=== PATIENT | female | born 1980 | race Caucasian/White ===

== ENCOUNTER 2017-10-06 15:21 | Inpatient (IN) | payer OTHER ==
[2017-10-06 16:08] LABS: Bilirubin Negative (Negative); Blood, Urine Trace (Negative); Glucose, Urine (Dipstick) Negative (Negative); Ketone, Urine Negative (Negative); Nitrite Negative (Negative); Protein, Urine (Dipstick) Negative (Neg-Trace); Urobilinogen 0.2 mg/dL (0.2-1.0)
[2017-10-06 16:12] LABS: Bacteria/HPF 1+ HPF (None Seen); Hyaline Casts/LPF 0-3 HYALINE CAST LPF (0-3 Hyaline); WBC/HPF 0-3 HPF (0-3)
[2017-10-06 16:14] LABS: #Basophils 0.1 thou/uL (0.0-0.2); #Eosinphils 0.2 thou/uL (0.0-0.7); #Lymphocytes 1.9 thou/uL (1.20-3.40); #Monocytes 0.7 thou/uL (0.11-0.59); #Neutrophils 9.7 thou/uL (1.40-6.50); %Basophils 0.6 % (0.0-1.0); %Eosinophils 1.7 % (0.0-10.0); %Lymphocytes 14.8 % (21.0-51.0); %Monocytes 5.6 % (0.0-10.0); Hematocrit 42.4 % (36.0-47.0); Mean Platelet Volume 7.7 fL (7.4-10.4); White Blood Cell (WBC) Count 12.5 thou/uL (4.8-10.8)
[2017-10-06] MEDS ORDERED: Pantoprazole 40 MG VIAL ONE (16:16)
[2017-10-06] MEDS ORDERED: Lidocaine Viscous Sol 2% 15 ml UD Cup ONE (16:16)
[2017-10-06] MEDS ORDERED: Mag-Al 1200 mg/1200 mg/30 ML UDCUP ONE (16:16)
[2017-10-06 16:33] LABS: ALT (SGPT) 26 U/L (8-55); AST (SGOT) 24 U/L (5-34); Alkaline Phosphatase 72 U/L (40-150); Anion Gap 14 mmol/L (10-20); BUN (Urea Nitrogen) 8 mg/dL (7.0-18.7); Bilirubin, Total 0.6 mg/dL (0.2-1.2); Calc. Creatinine Clearance 0 mL/min (70-130); Calcium 9.3 mg/dL (7.8-10.44); Carbon Dioxide 27 mmol/L (22-29); Chloride 98 mmol/L (98-107); Estimated GFR-MDRD 82; Globulin 3.6 g/dL (2.4-3.5); Protein, Total 7.6 g/dL (6.0-8.3)
[2017-10-06] MEDS ORDERED: Morphine 4 MG/ML VIAL ONE (16:37)
[2017-10-06] MEDS ORDERED: Ondansetron HCl/PF 4 MG/2 ML Vial ONE (16:37)
[2017-10-06] MEDS ORDERED: Acetaminophen 325 MG TAB PO PRN (19:21)
[2017-10-06] MEDS ORDERED: Ondansetron HCl/PF 4 MG/2 ML Vial IVP PRN (19:21)
[2017-10-06] MEDS ORDERED: Ondansetron ODT 4 MG TAB SL PRN (19:21)
[2017-10-06] MEDS ORDERED: traZODone HCl 50 MG TAB PO PRN (20:00)
[2017-10-06] MEDS ORDERED: hydrALAZINE 20 MG/ML VIAL SLOW IVP PRN (20:01)
[2017-10-06] MEDS ORDERED: Hydrochlorothiazide 25 MG TAB PO PRN (20:01)
[2017-10-06] MEDS: Morphine 4 MG/ML VIAL SLOW IVP PRN (20:05)
[2017-10-06] MEDS: busPIRone HCl 10 MG TAB PO SCH (20:47)
[2017-10-06] MEDS: clonazePAM 0.5 MG TAB PO SCH (20:47)
[2017-10-06 21:16] VITALS: BMI 35.2
[2017-10-07] MEDS: Morphine 4 MG/ML VIAL SLOW IVP PRN ×2 (00:05→04:20)
[2017-10-07] MEDS ORDERED: Ondansetron HCl/PF 4 MG/2 ML Vial IVP PRN ×3 (06:37→12:47)
[2017-10-07] MEDS ORDERED: MORPHINE 10 MG/ML SYRINGE IV PRN (06:37)
[2017-10-07] MEDS ORDERED: Ondansetron ODT 4 MG TAB PO PRN (06:37)
[2017-10-07] MEDS ORDERED: Sodium Chloride 0.9% 500 ML IVPB SCH (06:45)
[2017-10-07] MEDS ORDERED: D5 1/2 NS w/20 mEq KCL 1,000 ML IV SCH (06:45)
[2017-10-07] MEDS ORDERED: Morphine 4 MG/ML Carpuject SLOW IVP PRN (06:48)
[2017-10-07] MEDS ORDERED: Morphine 4 MG/ML VIAL SLOW IVP PRN (07:03)
--- NOTE | 2017-10-07 07:04 | HP ---
CHIEF COMPLAINT: Right upper quadrant abdominal pain. HISTORY OF PRESENT ILLNESS: This is a 37-year-old female with a 3-day history of progressive right u pper quadrant pain radiating to the back, associated with nausea, vomiting, no fevers, and chills. S he has had this pain in the past. PAST MEDICAL HISTORY: Anxiety, obesity, history of alcoholic pancreatitis. MEDICATIONS: Include Lipitor, hydrochlorothiazide, Klonopin, BuSpar, and trazodone. PAST SURGICAL HISTORY: section. ALLERGIES: No known drug allergies. FAMILY HISTORY: Noncontributory. SOCIAL HISTORY: She is engaged. She works at a [employer]. Smokes 1 pack per day. She is an alcoholic. She was dry for a while, but she has resumed drinking. PHYSICAL EXAMINATION: VITAL SIGNS: Temperature 98, pulse 71, blood pressure 134/91. GENERAL: She is an obese female in no apparent distress. HEENT: No jaundice. LUNGS: Clear. HEART: Regular rate and rhythm. ABDOMEN: Obese, soft, tender mildly in the right upper quadrant. No palpable masses. EXTREMITIES: Unremarkable. LABORATORY DATA: White count is 12.5, hemoglobin and hematocrit of 14 and 42, platelet count 285. E lectrolytes show an elevated glucose of 121. Liver function tests normal. ASSESSMENT: Possible early acute cholecystitis. CT showed gallstones with slightly enlarged common duct. PLAN: Laparoscopic cholecystectomy with cholangiogram. CONSENT: I have discussed the planned procedure as well as risk of bleeding, infection, injury to bi le duct, injury to bowel, need to open. She understands and gives informed consent.
[2017-10-07] MEDS ORDERED: Morphine PF 1 MG/ML SYR IV PRN ×2 (07:08→07:15)
[2017-10-07] MEDS ORDERED: Cefepime 2 GM, Syringe 2.5 ML in Sterile Water 10 ML SLOW IVP SCH (07:15)
[2017-10-07] MEDS: clonazePAM 0.5 MG TAB PO SCH (08:38)
[2017-10-07] MEDS: busPIRone HCl 10 MG TAB PO SCH (08:38)
[2017-10-07] MEDS ORDERED: Pantoprazole 40 MG VIAL IVP SCH (09:00)
[2017-10-07] MEDS ORDERED: Escitalopram Oxalate 10 mg Tablet PO SCH (09:00)
[2017-10-07] MEDS ORDERED: Hydrochlorothiazide 25 MG TAB PO SCH (09:00)
[2017-10-07] MEDS ORDERED: Bupivacaine/Epinephrine 0.25% 30 ML VIAL ONE (10:34)
[2017-10-07] MEDS ORDERED: Iothalamate Meglumine 60% 50 ML VIAL FS ONE (10:43)
[2017-10-07] MEDS ORDERED: Midazolam HCl 2 mg/2 ml Vial ONE ×2 (11:19→11:20)
[2017-10-07] MEDS ORDERED: Fentanyl 100 MCG/2 ML VIAL ONE (11:20)
[2017-10-07] MEDS ORDERED: Ondansetron HCl/PF 4 MG/2 ML Vial ONE (11:43)
[2017-10-07] MEDS ORDERED: Lidocaine 1% PF 5 ML VIAL ONE (11:43)
[2017-10-07] MEDS ORDERED: Ketorolac Tromethamine 30 MG/ML VIAL ONE (11:43)
[2017-10-07] MEDS ORDERED: Propofol 200 MG/20 ML VIAL ONE (11:43)
[2017-10-07] MEDS ORDERED: Dexamethasone 20 MG/5 ML VIAL ONE (11:43)
[2017-10-07] MEDS ORDERED: Glycopyrrolate 0.2 MG/ML 5 ML SYRINGE ONE (11:43)
[2017-10-07] MEDS ORDERED: Promethazine HCl 25 MG/ML VIAL IM PRN ×2 (12:07→12:47)
[2017-10-07] MEDS ORDERED: Promethazine HCl 25 MG/ML VIAL SLOW IVP PRN (12:07)
[2017-10-07] MEDS ORDERED: MORPHINE 10 MG/ML SYRINGE SLOW IVP PRN (12:47)
[2017-10-07] MEDS ORDERED: Mag-Al 1200 mg/1200 mg/30 ML UDCUP PO PRN (12:47)
[2017-10-07] MEDS ORDERED: HYDROcodone/Acetaminophen 10/325 mg Tablet PO PRN ×2 (12:47)
[2017-10-07] MEDS ORDERED: hydrALAZINE 20 MG/ML VIAL SLOW IVP PRN (12:47)
[2017-10-07] MEDS ORDERED: Calcium Carbonate 500 MG ChewTAB PO PRN (12:47)
[2017-10-07] MEDS ORDERED: Dextrose 50% Abboject 50 ML SYRINGE SLOW IVP PRN (12:47)
[2017-10-07] MEDS ORDERED: Morphine PF 1 MG/ML SYR IVP PRN (12:47)
[2017-10-07] MEDS ORDERED: Dextrose 5% in Water 1,000 ML IV PRN (12:47)
[2017-10-07] MEDS ORDERED: Lactated Ringer's 1,000 ML IV SCH (13:00)
--- NOTE | 2017-10-07 13:41 | OP ---
PREOPERATIVE DIAGNOSIS: Acute cholecystitis. SURGEON: Vignesh Damian M.D. PROCEDURE PERFORMED: Laparoscopic cholecystectomy with attempted cholangiogram. INDICATIONS: This is a 37-year-old female who has a several day history of progressive right upper q uadrant pain, nausea, and vomiting. CT scan that showed a very slightly prominent common bile duct, normal liver function tests and gallstones. FINDINGS: Thickened gallbladder wall, distended gallbladder, very tiny cystic duct. I tried multipl e times, I could not get the catheter to pass and the cystic duct was started to tear, so elected to abort the cholangiogram. DESCRIPTION OF PROCEDURE: After informed consent was obtained, the patient was taken to the operatin g room and given general endotracheal anesthesia, placed in the supine position. The abdomen was pre pped and draped in the usual fashion. Local anesthesia infiltrated subcutaneously and deep and a sup raumbilical incision was performed. Subcu divided sharply. The fascia grasped and two stay sutures of 0 Vicryl placed to either side of midline. Midline incised. Digital palpation revealed no local adhesions. A blunt 10-12 mm trocar inserted. Pneumoperitoneum was created to a pressure of 15 mmHg. A 0 degree laparoscope inserted. Under direct vision, three 5 mm ports placed subcostally. The ga llbladder was distended and tight and had aspirated 150 mL of bile removed. The gallbladder grasped and advanced superiorly. The peritoneum was dissected distally to expose the duct and artery. A cli p was placed at the base of the gallbladder on the cystic duct and an incision made in the cystic kong t and an attempt was made to thread an Arrow cholangiocatheter. Multiple attempts were unsuccessful. The lumen was so small that I could not get the catheter in. So the cystic duct was beginning to t ear, I was afraid it was going to lose it. She is morbidly obese and it would have been a disaster. So I elected to abort the cholangiogram, triply ligated the cystic duct and divided; triply ligate t he artery and divided. The gallbladder was removed utilizing electrocautery, placed in an Endosac an d removed from the abdomen in the Endosac. Hemostasis was assured. The wound thoroughly irrigated. Irrigation fluid removed. Trocars and retractors removed. The fascia closed with interrupted 0 Yared ryl suture. The skin closed with interrupted 4-0 Vicryl. Dermabond applied. The patient tolerated the procedure well and transferred to recovery in good condition. Sponge and needle count verified c orrect x2.
[2017-10-07] MEDS ORDERED: Piperacillin/Tazobactam 3.375 GM, Admixture Fee 1 EACH in Sodium Chloride 0.9% 100 ML IVPB SCH (18:00)
[2017-10-07 18:08] VITALS: BP 142/78; TEMP 98.2
[2017-10-07] MEDS ORDERED: Famotidine 20 MG TAB PO SCH (21:00)
[2017-10-07] MEDS ORDERED: Famotidine/PF 20 mg/2ml Vial SLOW IVP SCH (21:00)
[2017-10-07] MEDS ORDERED: Atorvastatin Calcium 10 MG TAB PO SCH (21:00)
--- NOTE | 2017-10-08 06:10 | DIS ---
DISCHARGE DIAGNOSES: Acute cholecystitis. PROCEDURES DURING ADMISSION: Laparoscopic cholecystectomy. HOSPITAL COURSE: The patient was admitted, taken to the operating room where she underwent laparosco pic cholecystectomy. She was found to have early acute cholecystitis. Postoperatively, she has done well. She is feeling fine. She is tolerating a regular diet. Pain is controlled on oral medicatio ns. She is discharged home on hydrocodone, Zofran, and doxycycline. She will follow up with me in 2 weeks.
[2017-10-08] MEDS ORDERED: Escitalopram Oxalate 10 mg Tablet PO SCH (09:00)
[2017-10-08] MEDS ORDERED: Enoxaparin Sodium 40 MG/0.4 ML SYRINGE SC SCH (09:00)
== END 2017-10-07 18:10 | disposition home or self-care (01) | DRG 419 ==
LOC: ERS 15:21 → SURG B 19:32
PROVIDERS: ADMIT Surgery; ATTEND Surgery
PROC: 0FT44ZZ Resection of Gallbladder, Percutaneous Endoscopic Approach (ICD-10-PCS; principal; 2017-10-07)
DX: K81.0 Acute cholecystitis (principal); E66.01 Morbid (severe) obesity due to excess calories; I10 Essential (primary) hypertension; Z68.35 Body mass index [BMI] 35.0-35.9, adult; E78.5 Hyperlipidemia, unspecified; F17.210 Nicotine dependence, cigarettes, uncomplicated; F41.9 Anxiety disorder, unspecified; Z87.19 Personal history of other diseases of the digestive system
CPT/HCPCS: 36415; 80053; 81003; 81015; 85025; 88304; 93005; 96374; 96375; A4216; C9113; J0692; J1100; J1170; J1885; J2001; J2250; J2270; J2274; J2405; J2543; J2704; J3010; J7050; Q9961